=== PATIENT | male | born 2000 | race African-American/Black ===

== ENCOUNTER → 2023-08-23 | Emergency (ER) | payer SELFPAY ==
--- OUTSIDE RECORDS SUMMARY | 2023-08-23 02:04 | XMS REPORT | Continuity of Care Document ---
Author Name Unknown Address [address] [facility] [address] [place] [address] [facility] thconnect Address [address] [facility] [address] [place] [address] Care Team Providers Care Team Lead Name Role Phone PCP, PATIENT DOES NOT HAVE A Primary Care Physic benjamín Unavailable Speedy Miguel Attending Clinician [phone] SPEEDY BROWNING Attending Clinician Unavailable DR KASH CORTÉS Attending Clinician Unavailable AUSTIN, DR ELSA Stephen Attending Clinician Unavail able BA, DR MARTINEZ Attending Clinician Unavailable GUMARO, DR ANDRE Dubose Attending Clinician Unavailabl e SPEEDY BROWNING Admitting Clinician Unavailable DR KASH CORTÉS Admitting Clinician Unavailable DR ELSA AVILA Admitting Clinician Unavail able ETSRELLITA, DR MARTINEZ Admitting Clinician Unavailable DR ANDRE NAIK Admitting Clinician Unavailabl e Payers Payer Name Policy Type Policy Number Effective Date Expirati on Date Source Allergies, Adverse Reactions, Alerts Allergy Name Allergy Type Status Severity Reaction(s) Onset Date Inactive Date Treating Clinician Comments Source No Known Allergie s DA Active U 11-22 00:00: 00 [facility] [place] No Known Allergie s DA Active U 11-22 00:00: 00 [facility] [place] NO KNOWN ALLERGIE S Drug Class Active [facility] No Known Allergie s DA Active [facility] Social History Social Habit Start Date Stop Date Quantity Comments Source Exposure to SARS-CoV-2 (event) 2022-07-28 00:00:00 2022-08-07 22:38:00 Not sure [facility] Sex Assigned At 2000 00:00:00 2000 00:00:00 [facility] Smoking Status Start Date Stop Date Source Tobacco smoking consumption unknown [facility] Medications Ordered Medication Name Filled Medication Name Start Date Stop Date Current Medication? Ordering Clinician Indication Dosage Frequency Signature (SIG) Comments Components Source benzonatate 200 mg capsule 08-08 00:00: 00 Yes [id number] 200mg Take 1 capsule by mouth 3 (three) times daily as needed for Cough. [facility] fluticasone propionate 50 mcg/actuati on nasal spray 08-08 00:00: 00 Yes [id number] 2{spray } Use 2 Sprays in each nostril in the morning. [facility] albuterol 90 mcg/actuati on inhaler 08-08 00:00: 00 Yes [id number] 2{puff} Inhale 2 Puffs every 4 (four) hours as needed for Wheezing or Shortness of Breath. [facility] predniSONE 20 mg tablet 08-08 00:00: 00 08-14 05:59 :00 No [id number] 40mg Take 2 tablets by mouth in the morning for 5 days. [facility] Vital Signs Vital Name Observation Time Observation Value Comments Oniel pink Systolic blood pressure 2022-08-08 04:39:00 154 mm[Hg] [facility] Diastolic blood pressure 2022-08-08 04:39:00 100 mm[Hg] [facility] Heart rate 2022-08-08 04:39:00 77 /min [facility] Body temperature 2022-08-08 04:39:00 37.39 Aubrie [facility] Respiratory rate 2022-08-08 04:39:00 18 /min [facility] Body height 2022-08-08 04:39:00 182.9 cm [facility] Body weight 2022-08-08 04:39:00 108.863 kg [facility] BMI 2022-08-08 04:39:00 32.55 kg/m2 [facility] Oxygen saturation in Arterial blood by Pulse oximetry 2022-08-08 04:39:00 99 /min [facility] Height 2021-05-11 16:42:00 182.88 CM Weight 2021-05-11 16:42:00 101.15 KG Height 2021-01-24 22:15:00 182.88 CM Weight 2021-01-24 22:15:00 99.79 KG Height 2020-11-24 13:00:00 182.88 CM Weight 2020-11-24 13:00:00 102.96 KG Height 2019-12-04 06:44:00 165.1 CM Weight 2019-12-04 06:44:00 77.11 KG Procedures Procedure Date / Time Performed Performing Clinicia n Source RAPID STREP SCREEN FOR GROUP A 2022-08-08 05:19:00 Speedy Browning [facility] RAPID INFLUENZA A/B 2022-08-08 05:19:00 Becky Browning [facility] COVID-19 (ID NOW RAPID TESTING) 2022-08-08 05:19:00 Speedy Browning [facility] NOTICE OF PRIVACY PRACTICES 2022-08-08 04:22:40 Doctor Unassigned, [place] [facility] CONSENT/REFUSAL FOR DIAGNOSIS AND TREATMENT 2022-08-08 04:22:22 Doctor Unassigned, [place] [facility] Encounters Start Date/Time End Date/Time Encounter Type Admission Type Attending [facility] Care Facility Care Department Encounter ID Source 2022-05-23 11:57:57 Outpatient [facility] [id number] [facility] 2020-11-22 11:55:02 Inpatient [facility] [id number] [facility] [place] 2022-08-07 22:41:00 2022-08-08 00:27:00 Emergency Speedy Browning [facility] [id number] [facility] 2022-08-07 22:41:00 2022-08-08 00:27:00 Emergency X SPEEDY BROWNING [facility] ERT [id number] [facility] 2021-05-11 16:39:00 2021-05-11 19:30:00 Outpatient E KASH CORTÉS [facility] [id number] [facility] 2021-01-24 21:58:00 2021-01-24 22:49:00 Outpatient E ELSA AVILA [facility] [id number] [facility] 2020-11-24 12:57:00 2020-11-24 16:35:00 Outpatient E ESTRELLITA MICHELLE [facility] [id number] [facility] 2019-12-04 06:28:00 2019-12-04 07:41:00 Outpatient E GUMARO ANDRE [facility] [id number] [facility] Results Test Description Test Time Test Comments Results Resul t Comments Source CT EXTREM LOWER W/O CONTRA LT *OW* 2021-05-11 19:13:28 [facility] 2000 Sex: M Exam: CT left ankle without contrastDictation location: H10 INDICATION: Pain, traumatic injuryCOMPARISON: Left foot x-ray and left ankle x-ray performed earlier the same dayTECHNIQUE: Axial 2.5 mm images of the left ankle were obtained without IV contrast, with coronal and sagittal reconstructions.DISCUSS ION: Osseous structures: No bony mass lesion is seen. There is partial ossification of the tibial side of the syndesmosis, possibly accounting for the suspected expansile lesion in the distal tibia. No fracture is identified. Dorsal talonavicular joint bony spurring is noted.Soft tissues: Muscle bulk is appropriate. No soft tissue mass, fluid collection, or inflammatory change is identified. The sinus tarsi and tarsal tunnel are unremarkable.IMPRESSION : 1. No acute bony abnormalities.2. Mild dorsal talonavicular joint degenerative changes.3. There is partial ossification on the tibial side of the syndesmosis, consistent with a healed remote high ankle injury. There is no tibial mass.One or more of the following dose reduction techniques were used: Automated exposure control, adjustment of the mA and/or kV according to patient size, and/or utilization of iterative reconstruction technique.DLP: 233 mGy-cm CTDI 8 mGyElectronically signed by: Radu Mcgrath MD 05/11/2021 7:13 PM RUST XR ANKLE LEFT COMPLETE 3 VIEWS *OW* 2021-05-11 17:50:31 [facility] 2000 Sex: M EXAMINAT ION:XR ANKLE LEFT COMPLETE 3 VIEWS *OW*CLINICAL INDICATION:Male, 20 years old with PainCOMPARISON: NoneFINDINGS:Three view(s) of the ankle obtained.Joint spaces: Anatomic.Bones: No acute fracture. An expansile lucent lesion measuring approximately 3.5 x 1.5 cm is suggested eccentric lesion within the distal tibia. This is best seen on the frontal radiograph where it appears to demonstrate a scalloped inner margin and is associated with cortical thinning.Soft tissues: Unremarkable.IMPRESSION : No evidence of acute osseous abnormality.Suboptimall y assessed geographic expansile lucent lesion is suggested at the distal tibia. 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 No fracture, dislocation, or lytic or blastic lesions are identified. 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 No acute bony abnormalities. 2. 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 13 *OW* [id number] 13:57:00* Test Item Value Reference Range Interpretation Comme nts GLUCOSE (test code = GGUL) 83 mg/dL 73-118 BUN (test code = GBUN) 13 mg/dL 7-22 CREATININE (test code = GCRE) 1.4 mg/dL 0.6-1.2 H URIC ACID (test code = GUA) 7.5 mg/dL 3.6-8.0 CALCIUM (test code = GCL+) 9.4 mg/dL 8.0-10.3 ALBUMIN (test code = GALB) 4.1 g/dL 3.5-5.5 PROTEIN (test code = GTP) 7.2 g/dL 6.4-8.1 ALT (test code = GALT) 15 U/L 10-47 AST (test code = JARED) 26 U/L 11-38 ALK PHOS (test code = GALP) 75 U/L 53-128 BILI TOTAL (test code = GTBIL) 0.6 mg/dL 0.2-1.6 GGT (test code = GGGT) 22 U/L 5-65 AMYLASE (test code = GAMY) 96 U/L 14-97 MetyLyte 8 Panel *OW* [id number] 13:57:00* Test Item Value Reference Range Interpretation Comme nts GLUCOSE (test code = GGUL) 83 mg/dL 73-118 BUN (test code = GBUN) 13 mg/dL 7-22 CREATININE (test code = GCRE) 1.4 mg/dL 0.6-1.2 H CK TOTAL (test code = GCK) 188 U/L 39-380 SODIUM (test code = GNA+) 137 mmol/L 128-145 POTASSIUM (test code = GK+) 4.1 mmol/L 3.6-5.1 CHLORIDE (test code = GCL-) 109 mmol/L 98-108 H TCO2 (test code = GTC02) 28 mmol/L 18-33 DRUGS OF ABUSE*OW*2020-11-24 13:42:00* Test Item Value Reference Range Interpretation Comme nts DRUG SCRN (test code = HDOA) URINE DRUG SCREEN This is an unconfirmed screening result and should not be used for non-medical purposes PHENCYCLID (test code = GPCP) Negative NEGATIVE BENZODIAZE (test code = GBZO) Negative NEGATIVE COCAINE (test code = GCOC) Negative NEGATIVE AMPHETAMIN (test code = GAMP) Negative NEGATIVE THC (test code = GTHC) Negative NEGATIVE OPIATES (test code = ROBBY) Negative NEGATIVE BARBITURAT (test code = GBAR) Negative NEGATIVE TCA (test code = GTCA) Negative NEGATIVE DOAH (test code = DOAH) URINE DRUG SCREEN CUT OFF VALUES Amphetamines 1000 ng/mL Barbituates 300 ng/mL Benzodiazepines 300 ng/mL Cocaine 300 ng/mL Opiates 300 ng/mL Phencyclidine 25 ng/mL THC 50 ng/mL Tricyclic Antidepressants 1000 ng/mL CBC (INCLUDES AUTOMATED DIFFERENTIAL) *2020-11-24 13:41:00* Test Item Value Reference Range Interpretation Comme nts WBC (test code = WBC) 6.7 10\S\3/uL 4.5-11.0 RBC (test code = RBC) 4.72 10\S\6/uL 4.30-5.70 HGB (test code = HBG) 13.3 g/dL 14.0-18.0 L HCT (test code = HCT) 42.0 % 35.0-46.0 MCV (test code = MCV) 88.9 fL 80.0-94.0 MCH (test code = MCH) 28.2 pg 27.0-31.0 MCHC (test code = MCHC) 31.7 g/dL 32.0-36.0 L RDW (test code = RDW) 13.2 % 11.5-14.5 PLT (test code = PLT) 294 10\S\3/uL 130-400 MPV (test code = OMPV) 7.8 fL 6.2-10.2 NEUTROP # (test code = NE#) 3.5 10\S\3/uL 2.0-8.0 LYMPH # (test code = LY#) 2.5 10\S\3/uL 1.2-4.0 MID # (test code = GMID#) 0.7 10\S\3/uL 0.0-1.1 GRAN % (test code = GRA%) 51.6 % 35.0-73.0 LYMPH % (test code = GLY%) 37.7 % 20.0-55.0 MID % (test code = GMID%) 10.7 % 0.0-10.0 H BASIC METABOLIC [id number] 12:19:00* Test Item Value Reference Range Interpretation Comme nts SODIUM (test code = NA) 139 mmol/L 135-145 N POTASSIUM (test code = K) 3.9 mmol/L 3.5-5.1 N CHLORIDE (test code = CL) 106 mmol/L 98-107 N CARBON DIOXIDE (test code = CO2) 28 mmol/L 21-32 N ANION GAP (test code = GAP) 8.9 2.0-16.0 N GLUCOSE (test code = GLU) 88 mg/dL 65-99 N BLOOD UREA NITROGEN (test code = BUN) 12 mg/dL 4-23 N GLOMERULAR FILTRATION RATE (test code = GFR) >=60 max estimate ml/min The estimated glomerular filtration rate is computed usingpatient race, age (>18), sex, and serum creatinine. If anyof the needed data elements are missing the Laboratory cannot compute an estimation of the glomerular filtration rate. CREATININE (test code = CREAT) 1.5 mg/dL 0.6-1.5 N BUN/CREATININE RATIO (test code = BUN/CREA) 8.0 12.0-20.0 L CALCIUM (test code = CA) 9.3 mg/dL 8.5-10.1 N LIVER FUNCTION [id number] 12:19:00* Test Item Value Reference Range Interpretation Comme nts TOTAL PROTEIN (test code = PROT) 8.1 g/dL 6.4-8.2 N ALBUMIN (test code = ALB) 3.9 g/dL 3.4-5.0 N GLOBULIN (test code = GLOB) 4.2 g/dL 2.3-3.5 H BILIRUBIN TOTAL (test code = BILT) 0.5 mg/dL 0.2-1.2 N Use of this a ssay is not recommended for patients undergoingtreatment with Eltrombopag due to the potential for falselyelevated results. BILIRUBIN DIRECT (test code = BILD) 0.1 mg/dL 0.0-0.3 N BILIRUBIN INDIRECT (test code = BILIND) 0.4 mg/dL 0.0-0.8 N SGOT/AST (test code = AST) 15 U/L 15-37 N SGPT/ALT (test code = ALT) 22 U/L 6-50 N ALKALINE PHOSPHATASE (test code = ALKP) 94 U/L 45-117 N [id number] 12:19:00* Test Item Value Reference Range Interpretation Comme nts LIPASE (test code = LIP) 82 U/L 73-393 N [id number] 12:19:00* Test Item Value Reference Range Interpretation Comme nts MAGNESIUM (test code = MAG) 2.2 mg/dL 1.8-2.4 N [id number] 12:19:00* Test Item Value Reference Range Interpretation Comme nts TROPONIN-I (test code = TROPI) < 0.02 ng/mL 0.00-0.07 N - XR CHEST 1 [id number] 12:12:00 [facility] 2000 Sex: MPatient Name: RUBENS ROBLEDO Unit No: [id number] EXAMS: CPT CODE: [id number] XR CHEST 1 V [id number] EXAM: XR Chest 1 View INDICATION: Chest Pain LOCATION CODE: C3 COMPARISON: None available. TECHNIQUE: Frontal view of the chest was obtained. FINDINGS: The lungs are clear. There is no pleural effusion or pneumothorax. The cardiomediastinal silhouette is unremarkable. No acute osseous abnormality is id entified. IMPRESSION: No acute cardiopulmonary abnormality. at 1212 Reported and signed by: Mary Mary M.D. CC: Ruy Molina MD Technologist: Onur Charles Fluoro Time: DAP (Gy m2): Air Kerma (mGy): Trscr Dt/Tm: 11/22/2020 (1212) by:[email or web address] Electronic Signature Date/Time: 11/22/2020 (1212)Orig Print D/T: S: 11/22/2020 (1215) Name: RUBENS ROBLEDO [facility] [place] Phys: [place] [address] : 2000 Age: 20 Sex: [place] [id number] Loc: NC.ERS Exam Date: 11/22/2020 Status: REG ER PH: FAX: PAGE 1 Signed ReportCBC W/AUTO [id number] 12:02:00* Test Item Value Reference Range Interpretation Comme nts WHITE BLOOD CELL (test code = WBC) 4.5 10 3/uL 4.5-11.0 N RED BLOOD CELL (test code = RBC) 4.99 10 6/uL 4.30-5.90 N HEMOGLOBIN (test code = HGB) 14.5 g/dL 14.0-18.0 N HEMATOCRIT (test code = HCT) 42.4 % 40.0-55.0 N MEAN CELL VOLUME (test code = MCV) 85 fL 81-102 N MEAN CELL HGB (test code = MCH) 29.1 pg 26.0-34.0 N MEAN CELL HGB CONCENTRATION (test code = MCHC) 34.2 g/dL 31.0-37.0 N RED CELL DISTRIBUTION WIDTH (test code = RDW) 12.4 % 11.6-14.4 N PLATELET COUNT (test code = PLT) 322 10 3/uL 150-400 N MEAN PLATELET VOLUME (test code = MPV) 9.7 fL 9.0-12.6 N NEUTROPHIL % (test code = NT%) 56.1 % 33.0-76.0 N IMMATURE GRANULOCYTE % (test code = IG%) 0.2 % 0.0-1.0 N LYMPHOCYTE % (test code = LY%) 33.4 % 14.0-56.4 N MONOCYTE % (test code = MO%) 8.5 % 0.0-12.9 N EOSINOPHIL % (test code = EO%) 0.9 % 0.0-7.0 N BASOPHIL % (test code = BA%) 0.9 % 0-2.0 N NUCLEATED RBC % (test code = NRBC%) 0.0 % 0-0.2 N NEUTROPHIL # (test code = NT#) 2.52 10 3/uL 1.5-7.0 N IMMATURE GRANULOCYTE # (test code = IG#) 0.010 x10 3/uL 0.000-0.100 N LYMPHOCYTE # (test code = LY#) 1.50 10 3/uL 1.50-4.00 N MONOCYTE # (test code = MO#) 0.38 10 3/uL 0.20-0.80 N EOSINOPHIL # (test code = EO#) 0.04 10 3/uL 0.0-0.5 N BASOPHIL # (test code = BA#) 0.04 10 3/uL 0.0-0.1 N Notes Date/Time Note Provider Source 2020-11-22 12:07:00 [id number] 7:00 [facility] ([place] HEALTHEMERGENCY PROVIDER REPORTREPORT#:[id number] REPORT STATUS: SignedDATE:11/22/20 TIME: 1207 PATIENT: RUBENS ROBLEDO UNIT #: [id number]#: [id number] ROOM: BED:AGE: 20 SEX: M PCP PHYS: Walter Crawford MDSERVICE AUTHOR: Ruy Molina MD * ALL edits or amendments must be made on the electronic/computer document * HPI-Chest Pain Under 40 GeneralInitial Greet Date/Time 11/22/20 1135 PresentationChief Complaint Chest pain, Shortness of breathHx Obtained From PatientSudden in Onset? YesOnset Occurred YesterdaySymptom Duration Since onsetProgression since Onset UnchangedContext of Onset WORSE WITH COUGHING AND TURNING SOME DIRECTIONS, RECENT URI 1 WEEK AGO AND HAS SEASONAL ALLERGIESQuality SharpRadiationDoes not radiate. )( Migration/Movement NoneSeverity: Onset MildSeverity: Current MildAssociated withReports: Cough, non-productive, Recent viral symptoms. Exacerbated by Cough, Movement, Palpation of chestRelieved by Remaining still, Rest Risk-Chest Pain Under 40 Risk Stratification)( Coronary Artery Disease Risk factors reviewed)( Pulmonary Embolism Risk factors reviewed)( AMI-Aspirin Aspirin Last 24 Hrs 324 mg)( HEART for MACE )( HEART for MACE Response Value History Low index of suspicion 0 ECG Interpretation Nonspec repol disturb 1 Age Age under 45 0 Risk Factors for CAD No risk factors known 0 Troponin < or = to NL troponin 0 Total 1 Review of Systems ROS StatementsAll systems rev neg except as marked. Focused Review of SystemsRespiratoryReports: Cough, non-productive. CardiovascularReports: Chest pain. Past Medical History - AdultStated Complaint CHEST PAINAllergiesCoded Allergies:No Known Allergies (11/22/20) Pt reports no significant: Past medical history, Past surgical history, Family history, Social history Physical Exam Vital SignsVital SignsFirst Documented: Result Date Time Pulse Ox 99 11/22 1144 B/P 150/79 11/22 1144 B/P Mean 102 11/22 1144 O2 Delivery Room air 11/22 1144 Temp 36.9 11/22 1144 Pulse 78 11/22 1144 Resp 18 11/22 1144 Last Documented: Result Date Time Pulse Ox 100 11/22 1433 B/P 142/84 11/22 1433 B/P Mean 103 11/22 1433 Temp 36.8 11/22 1433 Pulse 75 11/22 1433 Resp 16 11/22 1433 O2 Delivery Room air 11/22 1144 Review of Vital Signs Reviewed Focused PEGeneral/Const General/Const Awake, Alert, Well appearingEyes Eyes PERRLMS Neck Neck Supple, Full range of motion, No swelling, Non-tender, No masses, No JVDResp/Chest Respiratory/Chest Atraumatic, Breath sounds NL, Breath sounds = bilat, No respiratory distress, No rales, No rhonchi, No wheezing, No retractions, No stridor, No chest wall deformity, No crepitus Chest Wall/Ribs Chest tender upper R, Chest tender upper L, Chest tender lower R, Chest tender lower L. Cardiovascular Cardiovascular Heart rate NL, Regular rhythm, Heart sounds NL, No murmurs, Peripheral circulation NL, Pulses = bilaterally, No gross BP differentialAbdomen/GI Abdomen/GI Soft, Non-tender, No guarding, No reboundMS Back Back Inspection NL, Non-tender, No CVA tendernessSkin Skin Color NL, Warm, Dry, Turgor NLNeurologic Neurologic Oriented X3, Speech NL, No motor deficits, No sensory deficits Interpretation Diagnostics Lab Results InterpretationConsiderations Independ review imaging, Reviewed prior recordsResultsLaboratory Tests 11/22/20 1151:[Embedded Image Not Available]Laboratory Tests: 11/22 1151 Chemistry Sodium (135 - 145 mmol/L) 139 Potassium (3.5 - 5.1 mmol/L) 3.9 Chloride (98 - 107 mmol/L) 106 Carbon Dioxide (21 - 32 mmol/L) 28 Anion Gap (2.0 - 16.0) 8.9 BUN (4 - 23 mg/dL) 12 Creatinine (0.6 - 1.5 mg/dL) 1.5 Glomerular Filtr Rate (ml/min) >=60 max estimate BUN/Creatinine Ratio (12.0 - 20.0) 8.0 L Glucose (65 - 99 mg/dL) 88 Calcium (8.5 - 10.1 mg/dL) 9.3 Magnesium (1.8 - 2.4 mg/dL) 2.2 Total Bilirubin (0.2 - 1.2 mg/dL) 0.5 Direct Bilirubin (0.0 - 0.3 mg/dL) 0.1 Indirect Bilirubin (0.0 - 0.8 mg/dL) 0.4 AST (15 - 37 U/L) 15 ALT (6 - 50 U/L) 22 Total Alk Phosphatase (45 - 117 U/L) 94 Troponin I (0.00 - 0.07 ng/mL) < 0.02 Total Protein (6.4 - 8.2 g/dL) 8.1 Albumin (3.4 - 5.0 g/dL) 3.9 Globulin (2.3 - 3.5 g/dL) 4.2 H Lipase (73 - 393 U/L) 82 Hematology WBC (4.5 - 11.0 10 3/uL) 4.5 RBC (4.30 - 5.90 10 6/uL) 4.99 Hgb (14.0 - 18.0 g/dL) 14.5 Hct (40.0 - 55.0 %) 42.4 MCV (81 - 102 fL) 85 MCH (26.0 - 34.0 pg) 29.1 MCHC (31.0 - 37.0 g/dL) 34.2 RDW (11.6 - 14.4 %) 12.4 Plt Count (150 - 400 10 3/uL) 322 MPV (9.0 - 12.6 fL) 9.7 Neut % (Auto) (33.0 - 76.0 %) 56.1 Lymph % (Auto) (14.0 - 56.4 %) 33.4 [place] % (Auto) (0.0 - 12.9 %) 8.5 Eos % (Auto) (0.0 - 7.0 %) 0.9 Baso % (Auto) (0 - 2.0 %) 0.9 Neut # (Auto) (1.5 - 7.0 10 3/uL) 2.52 Lymph # (Auto) (1.50 - 4.00 10 3/uL) 1.50 [place] # (Auto) (0.20 - 0.80 10 3/uL) 0.38 Eos # (Auto) (0.0 - 0.5 10 3/uL) 0.04 Baso # (Auto) (0.0 - 0.1 10 3/uL) 0.04 Abs Immat Gran (auto) (0.000 - 0.100 x10 3/uL) 0.010 Immature Gran % (0.0 - 1.0 %) 0.2 Nucleated RBC % (0 - 0.2 %) 0.0 Recent Impressions:RADIOLOGY - XR CHEST 1 V 11/22 1150 Report Impression - Status: SIGNED Entered: 11/22/2020 1215 IMPRESSION:No acute cardiopulmonary abnormality. Impression By: CindyEBMei Mary M.D. Point of Care TestingPulse Oximetry Pulse Ox % 99 On: Room air Interpretation Interpreted by me, Pulse oximetry normal ECG #1 Interpretation ECG Interpretation NoteThe ECG interpretation was done contemporaneously by me. This is an adequate tracing. There is no acute ischemia; the rhythm is normal sinus; [place] does not demonstrate AV heart block; QRS does not demonstrate a bundle branch block; ST and T waves do not show any ST elevation to suggest acute NV; see [place] for details and measurements; agree with computer interpretation. Re-Evaluation MDM ED CourseMedication(s) OrderedMedication(s) Ordered:Central Nervous System Agents Sig/Roni Start time Last Medication Dose Route Stop Time Status Admin Ketorolac 15 MG X1ED STA 11/22 1311 DC 11/22 Tromethamine IV 11/22 1312 1322 Eye, Ear, Nose And Throat (Een Sig/Roni Start time Last Medication Dose Route Stop Time Status Admin Dexamethasone Sodium 8 MG X1ED STA 11/22 1143 DC 11/22 Phosphate IV 11/22 1144 1321 Differential DiagnosisDifferential Diagnosis Acute coronary syndrome, Acute myocardial infarct, Anxiety disorder, Aortic dissection, Aortic stenosis, Asthma exacerbation, Bronchitis, Chest pain, Chest pain, acute, Cholecystitis, Cholelithiasis, Congestive heart failure, Contusion, Costochondritis, Dysrhythmia, Esophageal rupture, Esophagitis, Gastritis, GERD, Gun shot wound chest, Hiatal hernia, Hypertroph cardiomyopathy, Zina-Marcelo syndrome, Mitral stenosis, Mitral valveprolapse, Musculoskeletal pain, Myocardial infarction, Myocarditis, Peptic ulcerdisease, Pericarditis, Pleurisy, Pneumomediastinum, Pneumonia, Pneumothorax, Pulmonary edema, Pulmonary embolism, Rib fracture, Stab wound chest, Stable angina, Unstable angina Patient Discharge Departure Vital Signs/ConditionVital SignsFirst Documented: Result Date Time Pulse Ox 99 11/22 1144 B/P 150/79 11/22 1144 B/P Mean 102 11/22 1144 O2 Delivery Room air 11/22 1144 Temp 36.9 11/22 1144 Pulse 78 11/22 1144 Resp 18 11/22 1144 Last Documented: Result Date Time Pulse Ox 100 11/22 1433 B/P 142/84 11/22 1433 B/P Mean 103 11/22 1433 Temp 36.8 11/22 1433 Pulse 75 11/22 1433 Resp 16 11/22 1433 O2 Delivery Room air 11/22 1144 All vital signs available at the time of this entry have been reviewed. Condition Improved Clinical ImpressionClinical ImpressionPrimary Impression: Costochondritis, acute Disposition DecisionDischarge )( Discharged to Home Yes )( Time 1341 )( Date 11/22/20 Discharge/Care PlanCounseled Regarding Diagnosis, Lab results, Imaging studies(Auto) PrescriptionsCurrent Visit ScriptsAzithromycin (Z-SAVANA) 250 MG PO ASDIR Azithromycin (Z-SAVANA) 250 MG PO ASDIR #6 TABS Take 2 tablets today, then 1 tablet daily thereafter for a total of 5 days of treatment. Albuterol (Proair HFA 90 MCG/ACT 8.5 GM) 2 PUFF INH RTQ4H PRN PRN DYSPNEA/WHEEZING Albuterol (Proair HFA 90 MCG/ACT 8.5 GM) 2 PUFF INH RTQ4H PRN PRN DYSPNEA/WHEEZING #8.5 GM Prednisone 50 MG PO DAILY Prednisone 50 MG PO DAILY #5 TABS Patient Instructions ED Bronchospasm (Adult), ED Chest Wall Pain, CostochondritisReferralsJosefa Harper MD Discharge NoteI have spoken with the patient and/or caregivers. I have explained the patient'scondition, diagnoses and treatment plan based on the information available to meat this time. I have answered the patient's and/or caregiver's questions and addressed any concerns. The patient and/or caregivers have as good an understanding of the patient's diagnosis, condition and treatment plan as can beexpected at this point. The vital signs have been stable. The patient's condition is stable and appropriate for discharge from the emergency department. The patient will pursue further outpatient evaluation with the primary care physician or other designated or consulting physician as outlined in the discharge instructions. The patient and/or caregivers are agreeable to this planof care and follow-up instructions have been explained in detail. The patient and/or caregivers have received these instructions in written format and have expressed an understanding of the discharge instructions. The patient and/or caregivers are aware that any significant change in condition or worsening of symptoms should prompt an immediate return to this or the closest emergency department or a call to 911. at 0931RPT #:[id number] OF REPORTEDEmerbaptist health [facility] department [id number]:07:00NC.[id number] ailable for patient edsgXBURVGWGKRGXKI6752-36-52J06:32:08 [facility] 2020-11-22 11:35:00 [id number]/[id number] 4doVpkQTFFRYPVEioJOnnOH6OrBNQp9wFJ7079-92-08R97:3 [id number] [address] PATIENT NAME: RUBENS ROBLEDO ADMIT DATE: 11/22/20ACCOUNT NO: [id number] ROOM NO: AGE: 20 REPORT TYPE: eELECTROCARDIOGRAM SEX: M ADMITTING PHYSICIAN: ATTENDING PHYSICIAN: Order:[id number] Reason : Test Date/Time Stamp:SunNov 22 2020 11:35:54Blood Pressure : / mmHGVent. Rate : 079 BPM Atrial Rate : 077 BPM P-R Int : 159 ms QRS Dur : 098 ms QT Int : 344 ms P-R-T Axes : 051 041 -07 degrees QTc Int : 395 ms Sinus rhythmBorderline T abnormalities, inferior leadsBorderline ST elevation, lateral leads Confirmed by MD Gio, Shelley ([id number]) on 11/22/2020 7:17:30 PM Referred By: Self Referred Confirmed by:Kellee Powers, at [address] [address] PATIENT NAME: RUBENS ROBLEDO .[id number] for patient cgkaNHRWNTZAAQZFLM4556-39-90N59:17:52 [facility]
--- NOTE | 2023-08-23 04:03 | EDPHYS ---
Physician Documentation [facility] Name: Elder Serrano Age: 22 yrs Sex: Male : 2000 Arrival Date: 08/23/2023 Time: 02:01 Bed 6 Private MD: ED Physician Ramon Boone HPI: 02:45 This 22 yrs old Black Male presents to ER via Ambulatory with complaints of Cough, sp4 Shortness Of Breath. 04:06 52-year-old male presents to the ER with complaints of cough wheezing and shortness of sp4 breath starting yesterday. . 04:06 Patient reports associated sore throat, throat hoarseness, feeling unwell, and clear to sp4 yellow mucus production also expectoration of mucus. 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 Flu vaccine is not up to date. - Social history:: Smoking status: Patient denies any tobacco usage or history of. - Family history:: not pertinent. ROS: 04:10 Constitutional: Negative for fever, chills, and weight loss, positive cough, positive sp4 congestion, positive shortness of breath, positive wheezing, positive expectoration of mucus 04:10 All other systems are negative, Exam: 04:10 Constitutional: This is a well developed, well nourished patient who is awake, alert, sp4 and in no acute distress. Head/Face: Normocephalic, atraumatic. Eyes: Pupils equal round and reactive to light, extra-ocular motions intact. Lids and lashes normal. Conjunctiva and sclera are not injected. Cornea within normal limits. Periorbital areas with no swelling, redness, or edema. ENT: Nares patent. No nasal discharge, no septal abnormalities noted. Tympanic membranes are normal and external auditory canals are clear. Oropharynx with no redness, swelling, or masses, exudates, or evidence of obstruction, uvula midline. Mucous membranes moist. Neck: Trachea midline, no thyromegaly or masses palpated, and no cervical lymphadenopathy. Supple, full range of motion without nuchal rigidity, or vertebral point tenderness. Chest/axilla: Normal chest wall appearance and motion. Nontender with no deformity. No lesions are appreciated. Cardiovascular: Regular rate and rhythm with a normal S1 and S2. No gallops, murmurs, or rubs. Normal PMI, no JVD. No pulse deficits. Respiratory: Lungs have equal breath sounds bilaterally, positive mild bilateral expiratory wheezes that are scattered, No increased work of breathing, no retractions or nasal flaring. Abdomen/GI: Soft, with normal bowel sounds. No distension or tympany. No guarding or rebound. No evidence of tenderness throughout. Back: No spinal tenderness. No costovertebral tenderness. Skin: Warm, dry with normal turgor. Normal color with no rashes, no lesions, and no evidence of cellulitis. MS/ Extremity: Pulses equal, no cyanosis. Neurovascular intact. Full, normal range of motion. Neuro: Awake and alert, GCS 15, oriented to person, place, time, and situation. Cranial nerves II-XII grossly intact. Motor strength 5/5 in all extremities. Sensory grossly intact. Psych: Awake, alert, with orientation to person, place and time. Behavior, mood, and affect are within normal limits Vital Signs: 02:26 BP 138 / 74; Pulse 90; Resp 20; Temp 99.3; Pulse Ox 99% ; Weight 108.86 kg; Height 6 vc1 ft. 0 in. ; Pain 8/10; 03:40 BP 144 / 69; Pulse 100; Pulse Ox 100% on R/A; Pain 0/10; tm6 03:42 Pulse 90; tm6 04:13 BP 128 / 72; Pulse 96; Resp 19; Temp 99(TE); Pulse Ox 99% on R/A; Pain 0/10; tm6 02:26 Body Mass Index 32.55 (108.86 kg, 182.88 cm) vc1 02:26 Pain Scale: Adult vc1 03:40 Pain Scale: Adult tm6 04:13 Pain Scale: Adult tm6 MDM: 02:46 Patient medically screened. sp4 04:01 Differential Diagnosis: Bronchitis Influenza Upper Respiratory Infection Sinusitis sp4 Pharyngitis Allergic Rhinitis. Data reviewed: vital signs, nurses notes, lab test result(s), Flu: negative. ED course: And will be prescribed Zithromax, albuterol, prednisone, dextromethorphan. Stable for discharge home. . 04:10 ED course: COVID-19 screen negative, strep screen negative, influenza screen negative. sp4 02:46 Order name: SARS RAPID sp4 02:46 Order name: Influenza Screen (a \T\ B) sp4 02:57 Order name: Strep sp4 03:35 Order name: Influenza Screen (A ; Complete Time: 03:50 EDMS Administered Medications: 03:09 Drug: Albuterol Inhalation 2.5 mg Inhalation once Route: Inhalation; tm6 03:09 Drug: Ipratropium Inhalation Aerosol 0.5 mg Inhalation once Route: Inhalation; tm6 03:09 Drug: predniSONE PO 60 mg PO once Route: PO; tm6 03:09 Drug: Dextromethorphan-Guaifenesin PO Liquid 10 mg-100 mg/5 mL 10 ml PO once Route: PO; tm6 03:09 Drug: Promethazine PO 25 mg PO once Route: PO; tm6 03:09 Drug: Ibuprofen PO 800 mg PO once Route: PO; tm6 Disposition Summary: 08/23/23 04:03 Discharge Ordered Notes: Location: Home sp4 Problem: new sp4 Symptoms: have improved sp4 Condition: Stable sp4 Diagnosis - Acute bronchitis, unspecified sp4 - Unspecified asthma with (acute) exacerbation sp4 Followup: sp4 - With: Giuseppe Delacruz DO - When: 7 - 10 days - Reason: Recheck today's complaints Discharge Instructions: - Discharge Summary Sheet sp4 - Acute Bronchitis, Adult sp4 Forms: - Patient Portal Instructions sp4 Prescriptions: - dextromethorphan-guaifenesin 10-200 mg Oral capsule - take 2 capsule ORAL route every 6 hours PRN cough; 42 capsule; Refills: 0, sp4 Product Selection Permitted - Albuterol Sulfate 2.5 mg /3 mL (0.083 %) Inhalation Solution for Nebulization - inhale 1 unit NEBULIZATION route every 4 hours As needed PRN wheezing every 4 sp4 hours, Dispense with Nebulizer and Adult mask, Dispense total of 50 vials; 50 unit; Refills: 0, Product Selection Permitted - Zithromax Z-Sai 250 mg Oral Tablet - take 1 tablet ORAL route as directed for 5 days Day 1 - take two (2) tablets sp4 one time. Day 2, 3, 4 , 5 take one (1) tablet once daily.; 6 tablet; Refills: 0, Product Selection Permitted - Prednisone 20 mg Oral Tablet - take 2 tablets ORAL route once daily for 5 days; 10 tablet; Refills: 0, Product sp4 Selection Permitted Signatures: Dispatcher [employer] Megan Green RN RN vc1 Ramon Boone MD MD sp4 Nani Byrne RN RN tm6
--- NOTE | 2023-08-23 04:03 | ER ---
Nurse's Notes [facility] Name: Elder Serrano Age: 22 yrs Sex: Male : 2000 Arrival Date: 08/23/2023 Time: 02:01 Bed 6 Private MD: Diagnosis: Acute bronchitis, unspecified;Unspecified asthma with (acute) exacerbation Presentation: 02:26 Chief complaint: Patient states: I'm having some shortness of breath, cough, and mucus, vc1 and a sore throat. Coronavirus screen: Vaccine status: Patient reports being unvaccinated. Client denies travel out of the [place] in the last 14 days. cough unrelated to allergies, shortness of breath, sore throat, Client presents with at least one sign or symptom that may indicate coronavirus-19. Ebola Screen: Patient negative for fever greater than or equal to 101.5 degrees Fahrenheit, and additional compatible Ebola Virus Disease symptoms Patient denies exposure to infectious person. Patient denies travel to an Ebola-affected area in the 21 days before illness onset. No symptoms or risks identified at this time. Initial Sepsis Screen: Does the patient meet any 2 criteria? No. Patient's initial sepsis screen is negative. Does the patient have a suspected source of infection? No. Patient's initial sepsis screen is negative. Risk Assessment: Do you want to hurt yourself or someone else? Patient reports no desire to harm self or others. Onset of symptoms was August 21, 2023. 02:26 Method Of Arrival: Ambulatory vc1 02:26 Acuity: JANETTE 4 vc1 Triage Assessment: 02:37 General: Appears in no apparent distress. uncomfortable, ill, Behavior is calm, vc1 cooperative, appropriate for age. Respiratory: Reports shortness of breath at rest Airway is patent Respiratory effort is even, unlabored, Respiratory pattern is regular, symmetrical, Onset: The symptoms/episode began/occurred suddenly, the patient has mild shortness of breath. 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 Flu vaccine is not up to date. - Social history:: Smoking status: Patient denies any tobacco usage or history of. - Family history:: not pertinent. Screenin:33 [facility] ED Fall Risk Assessment (Adult) History of falling in the last 3 months, tm6 including since admission No falls in past 3 months (0 pts). [facility] ED Fall Risk Assessment (Adult) Confusion or Disorientation No (0 pts) Intoxicated or Sedated No (0 pts) Impaired Gait No (0 pts) Mobility Assist Device Used No (0 pt) Altered Elimination No (0 pt) Score/Fall Risk Level 0 - 2 = Low Risk Oriented to surroundings, Maintained a safe environment. Abuse screen: Denies threats or abuse. Denies injuries from another. Nutritional screening: No deficits noted. Tuberculosis screening: No symptoms or risk factors identified. Assessment: 02:33 General: Appears in no apparent distress. Behavior is calm, cooperative. Pain: Denies tm6 pain. Neuro: Level of Consciousness is awake, alert, obeys commands, Oriented to person, place, time, situation. Cardiovascular: Capillary refill < 3 seconds Patient's skin is warm and dry. Respiratory: Airway is patent Respiratory effort is even, unlabored, Breath sounds with wheezes in right posterior upper lobe, right posterior middle lobe and right posterior lower lobe Parent/caregiver reports the patient having shortness of breath cough that is. GI: Abdomen is flat, non-distended, Reports diarrhea, nausea, vomiting. : No signs and/or symptoms were reported regarding the genitourinary system. EENT: Throat has enlarged tonsils Reports difficulty swallowing. Derm: No signs and/or symptoms reported regarding the dermatologic system. Musculoskeletal: No signs and/or symptoms reported regarding the musculoskeletal system. 03:40 Reassessment: Patient appears in no apparent distress at this time. Patient and/or tm6 family updated on plan of care and expected duration. Pain level reassessed. Patient is alert, oriented x 3, equal unlabored respirations, skin warm/dry/pink. Cardiovascular: Rhythm is. 04:13 Reassessment: Patient and/or family updated on plan of care and expected duration. Pain tm6 level reassessed. Patient is alert, oriented x 3, equal unlabored respirations, skin warm/dry/pink. Patient states feeling better. Vital Signs: 02:26 BP 138 / 74; Pulse 90; Resp 20; Temp 99.3; Pulse Ox 99% ; Weight 108.86 kg; Height 6 vc1 ft. 0 in. ; Pain 8/10; 03:40 BP 144 / 69; Pulse 100; Pulse Ox 100% on R/A; Pain 0/10; tm6 03:42 Pulse 90; tm6 04:13 BP 128 / 72; Pulse 96; Resp 19; Temp 99(TE); Pulse Ox 99% on R/A; Pain 0/10; tm6 02:26 Body Mass Index 32.55 (108.86 kg, 182.88 cm) vc1 02:26 Pain Scale: Adult vc1 03:40 Pain Scale: Adult tm6 04:13 Pain Scale: Adult tm6 ED Course: 02:12 Patient arrived in ED. [id number] 02:33 Nani Byrne, RN is Primary Nurse. tm6 02:33 Patient has correct armband on for positive identification. Bed in low position. Call tm6 light in reach. Side rails up X2. Provided Education on: plan of care. Client placed on continuous cardiac and pulse oximetry monitoring. NIBP monitoring applied. Pulse ox on. NIBP on. Door closed. Noise minimized. Lights dimmed. Warm blanket given. 02:35 Triage completed. vc1 02:37 Arm band placed on right wrist. vc1 02:45 Ramon Boone MD is Attending Physician. sp4 03:34 Strep Sent. tm6 03:34 Influenza Screen (a \T\ B) Sent. tm6 03:34 SARS RAPID Sent. tm6 04:03 Giuseppe Delacruz DO is Referral Physician. sp4 04:14 No provider procedures requiring assistance completed. Patient did not have IV access tm6 during this emergency room visit. Administered Medications: 03:09 Drug: Albuterol Inhalation 2.5 mg Inhalation once Route: Inhalation; tm6 03:09 Drug: Ipratropium Inhalation Aerosol 0.5 mg Inhalation once Route: Inhalation; tm6 03:09 Drug: predniSONE PO 60 mg PO once Route: PO; tm6 03:09 Drug: Dextromethorphan-Guaifenesin PO Liquid 10 mg-100 mg/5 mL 10 ml PO once Route: PO; tm6 03:09 Drug: Promethazine PO 25 mg PO once Route: PO; tm6 03:09 Drug: Ibuprofen PO 800 mg PO once Route: PO; tm6 Medication: 02:33 VIS not applicable for this client. tm6 Outcome: 04:03 Discharge ordered by . sp4 04:14 Discharged to home ambulatory, tm6 04:14 Condition: stable 04:14 Discharge instructions given to patient, Instructed on discharge instructions, follow up and referral plans. medication usage, Demonstrated understanding of instructions, follow-up care, medications, Prescriptions given X 4, 04:14 Patient left the ED. tm6 Signatures: Helga [id number] Megan Munguia, RN RN vc1 Ramon Boone MD MD sp4 Nani Byrne RN RN tm6
[2023-08-23 04:44] VITALS: BP 128/72; TEMP 99; O2SAT 99
== END ==
LOC: ER 02:01
DX: J20.9 Acute bronchitis, unspecified (principal); J45.901 Unspecified asthma with (acute) exacerbation; Z28.310 Unvaccinated for COVID-19
CPT/HCPCS: 36415; 87070; 87081; 87804; 87811; 99284; J7512; J7613; J7644; Q0169

== ENCOUNTER → 2023-08-23 | Emergency (ER) | payer SELFPAY ==
[~2023-08-23] MED LIST: ALBUTEROL 2.5 MG/3 ML NEB SOL ONE; GUAIFENESIN/DM 5 ML UCUP ONE; IBUPROFEN 400 MG TAB ONE; IPRATROPIUM BROM 0.5MG/2.5ML ONE; PROMETHAZINE 25 MG TABLET ONE; predniSONE 20 MG TAB ONE
--- OUTSIDE RECORDS SUMMARY | 2023-08-23 02:10 | XMS REPORT | Continuity of Care Document ---
Author Name Unknown Address [address] [facility] [address] [place] [address] [facility] thconnect Address [address] [facility] [place] [address] Care Team Providers Care Heel Top Lift Splitter Name Role Phone PCP, PATIENT DOES NOT HAVE A Primary Care Physic benjamín Unavailable Speedy Miguel Attending Clinician [phone] SPEEDY BROWNING Attending Clinician Unavailable DR KASH CORTÉS Attending Clinician Unavailable AUSTIN, DR ELSA Stephen Attending Clinician Unavail able BA, DR MARTINEZ Attending Clinician Unavailable GUMARO, DR ANDRE Dubose Attending Clinician Unavailabl e SPEEDY BROWNING Admitting Clinician Unavailable DR KASH CORTÉS Admitting Clinician Unavailable DR ELSA AVILA Admitting Clinician Unavail able ESTRELLITA, DR MARTINEZ Admitting Clinician Unavailable DR ANDRE NAIK Admitting Clinician Unavailabl e Payers Payer Name Policy Type Policy Number Effective Date Expirati on Date Source Allergies, Adverse Reactions, Alerts Allergy Name Allergy Type Status Severity Reaction(s) Onset Date Inactive Date Treating Clinician Comments Source No Known Allergie s DA Active U 11-22 00:00: 00 [facility] [place] No Known Allergie s DA Active U 11-22 00:00: 00 [facility] [place] No Known Allergie s DA Active [facility] NO KNOWN ALLERGIE S Drug Class Active [facility] Social History Social Habit Start Date Stop Date Quantity Comments Source Exposure to SARS-CoV-2 (event) 2022-07-28 00:00:00 2022-08-07 22:38:00 Not sure [facility] Sex Assigned At 2000 00:00:00 2000 00:00:00 [facility] Smoking Status Start Date Stop Date Source Tobacco smoking consumption unknown [facility] Medications Ordered Medication Name Filled Medication Name Start Date Stop Date Current Medication? Ordering Clinician Indication Dosage Frequency Signature (SIG) Comments Components Source benzonatate 200 mg capsule 08-08 00:00: 00 Yes [id number] 200mg Take 1 capsule by mouth 3 (three) times daily as needed for Cough. [facility] fluticasone propionate 50 mcg/actuati on nasal spray 08-08 00:00: 00 Yes [id number] 2{spray } Use 2 Sprays in each nostril in the morning. [facility] albuterol 90 mcg/actuati on inhaler 08-08 00:00: 00 Yes [id number] 2{puff} Inhale 2 Puffs every 4 (four) hours as needed for Wheezing or Shortness of Breath. [facility] predniSONE 20 mg tablet 08-08 00:00: 00 08-14 05:59 :00 No [id number] 40mg Take 2 tablets by mouth in the morning for 5 days. [facility] Vital Signs Vital Name Observation Time Observation Value Comments Oniel pink Systolic blood pressure 2022-08-08 04:39:00 154 mm[Hg] [facility] Diastolic blood pressure 2022-08-08 04:39:00 100 mm[Hg] [facility] Heart rate 2022-08-08 04:39:00 77 /min [facility] Body temperature 2022-08-08 04:39:00 37.39 Aubrie [facility] Respiratory rate 2022-08-08 04:39:00 18 /min [facility] Body height 2022-08-08 04:39:00 182.9 cm [facility] Body weight 2022-08-08 04:39:00 108.863 kg [facility] BMI 2022-08-08 04:39:00 32.55 kg/m2 [facility] Oxygen saturation in Arterial blood by Pulse oximetry 2022-08-08 04:39:00 99 /min [facility] Height 2021-05-11 16:42:00 182.88 CM Weight 2021-05-11 16:42:00 101.15 KG Height 2021-01-24 22:15:00 182.88 CM Weight 2021-01-24 22:15:00 99.79 KG Height 2020-11-24 13:00:00 182.88 CM Weight 2020-11-24 13:00:00 102.96 KG Height 2019-12-04 06:44:00 165.1 CM Weight 2019-12-04 06:44:00 77.11 KG Procedures Procedure Date / Time Performed Performing Clinicia n Source RAPID STREP SCREEN FOR GROUP A 2022-08-08 05:19:00 Speedy Browning [facility] RAPID INFLUENZA A/B 2022-08-08 05:19:00 Becky Browning [facility] COVID-19 (ID NOW RAPID TESTING) 2022-08-08 05:19:00 Speedy Browning [facility] NOTICE OF PRIVACY PRACTICES 2022-08-08 04:22:40 Doctor Unassigned, [place] [facility] CONSENT/REFUSAL FOR DIAGNOSIS AND TREATMENT 2022-08-08 04:22:22 Doctor Unassigned, [place] [facility] Encounters Start Date/Time End Date/Time Encounter Type Admission Type Attending [facility] Care Facility Care Department Encounter ID Source 2022-05-23 11:57:57 Outpatient [facility] [id number] 9 [facility] 2020-11-22 11:55:02 Inpatient [facility] [id number] [facility] [place] 2022-08-07 22:41:00 2022-08-08 00:27:00 Emergency Speedy Browning [facility] [id number] [facility] 2022-08-07 22:41:00 2022-08-08 00:27:00 Emergency X SPEEDY BROWNING [facility] ERT [id number] [facility] 2021-05-11 16:39:00 2021-05-11 19:30:00 Outpatient E KASH CORTÉS [facility] [id number] [facility] 2021-01-24 21:58:00 2021-01-24 22:49:00 Outpatient E ELSA AVILA [facility] [id number] [facility] 2020-11-24 12:57:00 2020-11-24 16:35:00 Outpatient E ESTRELLITA MICHELLE [facility] [id number] [facility] 2019-12-04 06:28:00 2019-12-04 07:41:00 Outpatient E GUMARO ANDRE [facility] [id number] [facility] Results Test Description Test Time Test Comments Results Resul t Comments Source CT EXTREM LOWER W/O CONTRA LT *OW* 2021-05-11 19:13:28 [facility] 2000 Sex: M Exam: [...] by: Radu Mcgrath MD 05/11/2021 7:13 PM [facility] XR ANKLE LEFT COMPLETE 3 VIEWS *OW* 2021-05-11 17:50:31 [facility] 2000 Sex: M EXAMINAT [...] by: Ada Barreto MD 05/11/2021 5:50 PM MICROFILM OPERATOR XR FOOT LEFT COMPLETE 3 VIEWS *OW* 2021-05-11 17:43:57 [facility] 2000 Sex: M EXAM: Left foot series, 3 viewsDictation location: [id number]: Pain; no additional information is providedCOMPARISON: None.DISCUSSION: Frontal, oblique, and lateral views of the left foot are submitted. No fracture, dislocation, or lytic or blastic lesions are identified. 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 No acute bony abnormalities. 2. Mild degenerative changes of the talonavicular joint.Electronically signed by: Radu Mcgrath MD 05/11/2021 5:43 PM MICROFILM OPERATOR GENERAL CHEMISTRY 13 *OW* [id number] 13:57:00* Test Item Value Reference Range Interpretation [...] 96 U/L 14-97 [employer] 8 Panel *OW* [id number] 13:57:00* Test Item Value Reference Range Interpretation [...] GMID%) 10.7 % 0.0-10.0 H BASIC METABOLIC [id number] 12:19:00* Test Item Value Reference Range Interpretation [...] CA) 9.3 mg/dL 8.5-10.1 N LIVER FUNCTION [id number] 12:19:00* Test Item Value Reference Range Interpretation [...] code = ALKP) 94 U/L 45-117 N [id number] 12:19:00* Test Item Value Reference Range Interpretation Comme nts LIPASE (test code = LIP) 82 U/L 73-393 N [id number] 12:19:00* Test Item Value Reference Range Interpretation Comme nts MAGNESIUM (test code = MAG) 2.2 mg/dL 1.8-2.4 N [id number] 12:19:00* Test Item Value Reference Range Interpretation Comme nts TROPONIN-I (test code = TROPI) < 0.02 ng/mL 0.00-0.07 N - XR CHEST 1 [id number] 12:12:00 [facility] : 2000 Sex: MPatient Name: RUBENS ROBLEDO Unit No: [id number] EXAMS: CPT CODE: [id number] XR CHEST 1 V [id number] EXAM: XR Chest 1 View INDICATION: Chest [...] D/T: S: 11/22/2020 (1215) Name: RUBENS ROBLEDO [facility] [place]: [place] [address] : 2000 Age: 20 Sex: [place] [address] Loc: NC.ERS Exam Date: 11/22/2020 Status: REG ER PH: FAX: PAGE 1 Signed ReportCBC W/AUTO [id number] 12:02:00* Test Item Value Reference Range Interpretation [...] Notes Date/Time Note Provider Source 2020-11-22 12:07:00 [id number] [id number] [id number]/sq46670-00-18E00:0 7:00 [facility] PROVIDER REPORTREPORT#:[id number] REPORT STATUS: SignedDATE:11/22/20 TIME: 1207 PATIENT: RUBENS ROBLEDO UNIT #: [id number]#: [id number] ROOM: BED:AGE: 20 SEX: M PCP PHYS: [...] % (Auto) (14.0 - 56.4 %) 33.4 [place] % (Auto) (0.0 - 12.9 %) 8.5 Eos % (Auto) (0.0 - 7.0 %) 0.9 Baso % (Auto) (0 - 2.0 %) 0.9 Neut # (Auto) (1.5 - 7.0 10 3/uL) 2.52 Lymph # (Auto) (1.50 - 4.00 10 3/uL) 1.50 [place] # (Auto) (0.20 - 0.80 10 3/uL) [...] acute ischemia; the rhythm is normal sinus; TN does not demonstrate AV heart block; QRS does not demonstrate a bundle branch block; ST and T waves do not show any ST elevation to suggest acute MN; see [place] for details and measurements; agree with computer [...] or a call to 911. at 0931RPT #:[id number] OF REPORTEDEmerdallas county medical center department [id number]:07:00NC.[id number] ailable for patient [id number]:32:08 [facility] 2020-11-22 11:35:00 [id number]/aFvXFSUkzfwDbx2AglwZ 8rrLokTRBJMNMXFkeMMouUR9MnSMCz0zUE3720-52-72R24:3 [id number] [address] PATIENT NAME: RUBENS ROBLEDO ADMIT DATE: 11/22/20ACCOUNT NO: [id number] ROOM NO: AGE: 20 REPORT TYPE: eELECTROCARDIOGRAM SEX: M ADMITTING PHYSICIAN: ATTENDING PHYSICIAN: Order:[id number] Reason : Test Date/Time Stamp:SunNov 22 2020 11:35:54Blood Pressure : / mmHGVent. Rate : 079 BPM Atrial Rate : 077 BPM P-R Int : 159 ms QRS Dur : 098 ms QT Int : 344 ms P-R-T Axes : 051 041 -07 degrees QTc Int : 395 ms Sinus rhythmBorderline T abnormalities, inferior leadsBorderline ST elevation, lateral leads Confirmed by MD Gio, Shelley ([id number]) on 11/22/2020 7:17:30 PM Referred By: Self Referred Confirmed by:Kellee Powers, at [address] [address] PATIENT NAME: RUBENS ROBLEDO .[id number] for patient ivtzCXYBYEQNRXJTVF4728-07-32Z00:17:52 [facility]
[2023-08-23 03:33] LABS: SARS-CoV-2 Antigen Rapid Res Negative (Negative)
== END ==
LOC: ER 02:08
DX: Z02.9 Encounter for administrative examinations, unspecified (principal)
CPT/HCPCS: 36415; 87070; 87081; 87804; 87811; J7512; J7613; J7644; Q0169